=== PATIENT | male | born 1975 | race Caucasian/White ===

== ENCOUNTER 2018-05-29 19:31 | Emergency (ER) | payer OTHER ==
[2018-05-29] MEDS ORDERED: TYLENOL PO ONE (20:42)
[2018-05-29] MEDS ORDERED: NACL 0.9% 1000 ML 2,000 ML IV ONE (20:42)
[2018-05-29] MEDS ORDERED: PEPCID IV ONE (20:42)
--- NOTE | 2018-05-29 20:43 | Emergency Department Report ---
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 The patient does not think he has a primary care doctor. He has a history of hypertension. The patient presents to the emergency room today with a complaint of chest pain and headache. The chest pain is on the right side and left side. The patient reports the pain does not radiate anywhere. He thinks it is pressure-like, achy in nature. He denies vomiting, diaphoresis. He indicates that he feels that he has a fast heart rate. However, he makes no complaint of exertional shortness of breath or chest pain. The patient denies leg pain and leg swelling. He denies recent surgery, and he denies recent hospitalization. However, he does report a recent airplane trip to [place] within the past month. He reports no family history of heart disease, or DVT, pulmonary embolus. The patient reports that he does not smoke cigarettes. He cannot describe the qualitative nature of his pain, and he indicates no exacerbating or relieving factors. He denies hematemesis, bright red blood per rectum. He initially did complain of some shortness of breath, and upon further cla rification, indicates that he feels like his heart is racing. He also complains of frontal and bitemporal headache. He makes no complaint of fever, neck pain or neck stiffness, or sudden or thunderclap headache. -: Gradual, hour(s) Location: head, chest Quality: other Consistency: other Improves with: other Worsens with: other - Related Data Previous Rx's Medication Instructions Recorded Last Taken Type Acetaminophen [Tylenol Arthritis] 650 mg PO Q6HR PRN #30 tablet.er 05/30/18 Unknown Rx Aspirin [Aspirin BABY CHEW TAB] 81 mg PO QDAY #30 tab.chew 05/30/18 Unknown Rx Allergies Allergy/AdvReac Type Severity Reaction Status Date / Time No Known Allergies Allergy Unverified 04/10/19 19:48 ED Review of Systems ROS: Stated complaint: SHORTNESS OF BREATH Other details as noted in HPI Constitutional: denies: fever ENT: denies: dental pain, congestion Respiratory: denies: cough Cardiovascular: chest pain, palpitations Gastrointestinal: denies: abdominal pain, nausea, vomiting, hematemesis, melena, hematochezia Musculoskeletal: denies: back pain Neurological: headache. denies: weakness Psychiatric: anxiety ED Past Medical Hx - Past Medical History Previous Medical History?: Yes Hx Hypertension: Yes - Social History Smoking Status: Smoker, Current Status Unknown Substance Use Type: Alcohol - Medications Home Medications: Home Medications Medication Instructions Recorded Confirmed Last Taken Type Acetaminophen [Tylenol Arthritis] 650 mg PO Q6HR PRN #30 tablet.er 05/30/18 Unknown Rx Aspirin [Aspirin BABY CHEW TAB] 81 mg PO QDAY #30 tab.chew 05/30/18 Unknown Rx ED Physical Exam - General Limitations: Language Barrier General appearance: alert, anxious - Head Head exam: Present: atraumatic, normocephalic - Eye Eye exam: Present: normal appearance, EOMI. Absent: nystagmus - ENT ENT exam: Present: normal exam, normal orophraynx, mucous membranes moist, normal external ear exam - Neck Neck exam: Present: normal inspection, full ROM. Absent: tenderness, meningismus - Respiratory Respiratory exam: Present: normal lung sounds bilaterally. Absent: respiratory distress - Cardiovascular Cardiovascular Exam: Present: normal rhythm, tachycardia, normal heart sounds. Absent: systolic murmur, diastolic murmur, rubs, gallop - GI/Abdominal GI/Abdominal exam: Present: soft. Absent: distended, tenderness, guarding, rebound, rigid, pulsatile mass - Rectal Rectal exam: Present: deferred - Extremities Exam Extremities exam: Present: normal inspection, full ROM, other (2+ pulses noted in the bilateral upper, lower extremities. Compartments soft. No long bony tenderness. The pelvis is stable.). Absent: pedal edema, joint swelling, calf tenderness - Back Exam Back exam: Present: normal inspection, full ROM. Absent: tenderness, CVA tenderness (R), paraspinal tenderness, vertebral tenderness - Neurological Exam Neurological exam: Present: alert, other (Extraocular movements intact. Tongue midline. No facial droop. Facial sensation intact to light touch in the V1, V2, V3 distribution bilaterally. 5 and 5 strength in 4 extremities.. Sensation is intact to light touch in 4 extremities.). Absent: motor sensory deficit - Psychiatric Psychiatric exam: Present: normal affect, normal mood - Skin Skin exam: Present: warm, dry, intact, normal color. Absent: rash ED Course Vital Signs 05/29/18 05/29/18 05/29/18 19:38 19:57 20:00 Temperature 98.9 F 98.4 F Pulse Rate 138 H 124 H 119 H Respiratory 20 19 18 Rate Blood Pressure 147/90 137/90 Blood Pressure 156/94 147/90 [Right] O2 Sat by Pulse 98 98 98 Oximetry 05/29/18 05/29/18 05/29/18 21:00 22:01 23:00 Temperature Pulse Rate 103 H 102 H 87 Respiratory 19 17 16 Rate Blood Pressure 123/86 132/85 Blood Pressure [Right] O2 Sat by Pulse 98 97 98 Oximetry 05/30/18 05/30/18 00:00 01:00 Temperature Pulse Rate 84 77 Respiratory 15 15 Rate Blood Pressure 109/70 110/68 Blood Pressure [Right] O2 Sat by Pulse 97 97 Oximetry - Reevaluation(s) Reevaluation #1: 05/29/18 22:44 Differential diagnosis, including but not limited to: GERD, gastritis, costochondritis, pulmonary embolus, migraine headache, tension headache, cluster headache, acute coronary syndrome, pneumonia, pneumothorax Assessment and plan: 42-year-old gentleman with tachycardia, left axis deviation, reported recent airplane trip to [place], with nonspecific chest pain. The patient is at low risk for major adverse cardiac event, in terms of acute coronary syndrome, coronary artery disease, as per the heart score risk stratification. However, given tachycardia, recent airplane trip, left axis deviation, we will obtain CT scan of the chest to exclude a pulmonary embolus. Patient complains of nonspecific headache, so we will treat both chest pain and headache, and obtain noncontrast CT scan of the brain. We will reassess after his data points have resulted. Tachycardia improving, heart rate currently 102 bpm. 05/29/18 22:45 Reevaluation #2: 05/29/18 23:14 CT scan of the brain is negative for acute disease. CT scan of the chest is negative for acute disease. Reevaluation #3: 05/30/18 01:54 Troponin is negative 3. CT scan of the chest is negative for acute disease. CT scan of the brain is negative for acute disease. Patient reevaluated multiple times by myself, tachycardia resolved, and he appears to be quite comfortable. Repeat EKGs have basically appeared unchanged from prior, without evidence of ST elevation myocardial infarction, with the exception of the second EKG showing r esolution of the previously described left axis deviation, and questionable poor R wave progression versus lead placement. EKG #3 has shown borderline left axis deviation, and no poor R-wave progression. Extensive discussion had with patient using field organizer. It was explained to the patient's that there is no evidence of acute heart attack, pulmonary embolus, collapsed lung or pneumonia. It was further explained to patient that he would need to follow up with an outpatient stitcher around to have a stress test to exclude coronary artery disease. This was specifically done using the aforementioned field organizer. The patient and have verbalized understanding. ED Medical Decision Making - Lab Data Result diagrams: 05/29/18 20:55 05/29/18 20:55 Vital Signs 05/29/18 05/29/18 05/29/18 19:38 19:57 20:00 Temperature 98.9 F 98.4 F Pulse Rate 138 H 124 H 119 H Respiratory 20 19 18 Rate Blood Pressure 147/90 137/90 Blood Pressure 156/94 147/90 [Right] O2 Sat by Pulse 98 98 98 Oximetry 05/29/18 05/29/18 21:00 22:01 Temperature Pulse Rate 103 H 102 H Respiratory 19 17 Rate Blood Pressure 123/86 Blood Pressure [Right] O2 Sat by Pulse 98 97 Oximetry Lab Results 05/29/18 05/29/18 05/29/18 Range/Units 20:55 20:55 20:55 WBC 12.2 H (4.5-11.0) K/mm3 RBC 4.95 (3.65-5.03) M/mm3 Hgb 16.0 H (11.8-15.2) gm/dl Hct 44.7 (35.5-45.6) % MCV 90 (84-94) fl MCH 32 (28-32) pg MCHC 36 H (32-34) % RDW 11.7 L (13.2-15.2) % Plt Count 379 (140-440) K/mm3 Lymph % (Auto) 9.8 L (13.4-35.0) % Mccracken % (Auto) 6.2 (0.0-7.3) % Eos % (Auto) 0.1 (0.0-4.3) % Baso % (Auto) 0.2 (0.0-1.8) % Lymph # 1.2 (1.2-5.4) K/mm3 Mccracken # 0.8 (0.0-0.8) K/mm3 Eos # 0.0 (0.0-0.4) K/mm3 Baso # 0.0 (0.0-0.1) K/mm3 Seg Neutrophils % 83.7 H (40.0-70.0) % Seg Neutrophils # 10.2 H (1.8-7.7) K/mm3 PT 12.8 (12.2-14.9) Sec. INR 0.91 (0.87-1.13) APTT 25.4 (24.2-36.6) Sec. Sodium 137 (137-145) mmol/L Potassium 3.7 (3.6-5.0) mmol/L Chloride 100.9 (98-107) mmol/L Carbon Dioxide 23 (22-30) mmol/L Anion Gap 17 mmol/L BUN 14 (9-20) mg/dL Creatinine 0.9 (0.8-1.5) mg/dL Estimated GFR > 60 ml/min BUN/Creatinine Ratio 16 % Glucose 147 H (75-100) mg/dL Calcium 9.4 (8.4-10.2) mg/dL Magnesium 2.20 (1.7-2.3) mg/dL Total Bilirubin 0.60 (0.1-1.2) mg/dL AST 20 (5-40) units/L ALT 26 (7-56) units/L Alkaline Phosphatase 65 (35-129) units/L Total Creatine Kinase 102 (55-170) units/L Troponin T < 0.010 (0.00-0.029) ng/mL Total Protein 7.1 (6.3-8.2) g/dL Albumin 4.6 (3.9-5) g/dL Albumin/Globulin Ratio 1.8 % Lipase 17 (13-60) units/L TSH (0.270-4.200) mlU/mL 05/29/18 Range/Units 20:55 WBC (4.5-11.0) K/mm3 RBC (3.65-5.03) M/mm3 Hgb (11.8-15.2) gm/dl Hct (35.5-45.6) % MCV (84-94) fl MCH (28-32) pg MCHC (32-34) % RDW (13.2-15.2) % Plt Count (140-440) K/mm3 Lymph % (Auto) (13.4-35.0) % Mccracken % (Auto) (0.0-7.3) % Eos % (Auto) (0.0-4.3) % Baso % (Auto) (0.0-1.8) % Lymph # (1.2-5.4) K/mm3 Mccracken # (0.0-0.8) K/mm3 Eos # (0.0-0.4) K/mm3 Baso # (0.0-0.1) K/mm3 Seg Neutrophils % (40.0-70.0) % Seg Neutrophils # (1.8-7.7) K/mm3 PT (12.2-14.9) Sec. INR (0.87-1.13) APTT (24.2-36.6) Sec. Sodium (137-145) mmol/L Potassium (3.6-5.0) mmol/L Chloride (98-107) mmol/L Carbon Dioxide (22-30) mmol/L Anion Gap mmol/L BUN (9-20) mg/dL Creatinine (0.8-1.5) mg/dL Estimated GFR ml/min BUN/Creatinine Ratio % Glucose (75-100) mg/dL Calcium (8.4-10.2) mg/dL Magnesium (1.7-2.3) mg/dL Total Bilirubin (0.1-1.2) mg/dL AST (5-40) units/L ALT (7-56) units/L Alkaline Phosphatase (35-129) units/L Total Creatine Kinase (55-170) units/L Troponin T (0.00-0.029) ng/mL Total Protein (6.3-8.2) g/dL Albumin (3.9-5) g/dL Albumin/Globulin Ratio % Lipase (13-60) units/L TSH 0.941 (0.270-4.200) mlU/mL - EKG Data -: EKG Interpreted by Sc EKG shows normal: sinus rhythm Rate: tachycardia - EKG Data When compared to previous EKG there are: previous EKG unavailable 05/29/18 22:46 EKG #1 shows a sinus tachycardia, with a left axis deviation, QTC 460 ms, this EKG is abnormal, there is no prior for comparison, this EKG is not consistent with an ST elevation myocardial infarction. - Radiology Data Radiology results: pending, report reviewed, image reviewed Print Report Referring Physician: GRAEME BEAN Patient Name: THANH GUO Date of : 1975 Sex: Male Report Date: 2018-05-29 Report Status: Finalized Findings [facility] [address] [place] [address] XRay Report Signed Patient: THANH GUO MR#: [id number] : 1975 Acct:[id number] Age/Sex: 42 / M ADM Date: 05/29/18 Loc: ED Attending Dr: Ordering Physician: GRAEME BEAN MD Date of Service: 05/29/18 Procedure(s): XR chest routine 2V Accession Number(s): [id number] cc: GRAEME BEAN MD Fluoro Time In Minutes: PROCEDURE: XR CHEST ROUTINE 2V TECHNIQUE: 2 views of the chest HISTORY: Chest Pain COMPARISONS: None FINDINGS: Low volume exam. Crowding in both bases could obscure a subtle infiltrate. Normal heart size. No pleural effusion. IMPRESSION: Low-volume exam with crowding of the bases could obscure a subtle infiltrate. No effusion. Recommend larger inspiratory volume follow-up chest x-ray.. This document is electronically signed by Renetta Mackey MD., May 29 2018 09:41:24 PM ET Transcribed By: MP Dictated By: RENETTA MACKEY Electronically Authenticated By: RENETTA MACKEY Signed Date/Time: 05/29/18 869 Critical care attestation.: If time is entered above; I have spent that time in minutes in the direct care of this critically ill patient, excluding procedure time. ED Disposition Clinical Impression: Chest pain, Headache Disposition: - TO HOME OR SELFCARE Is pt being admited?: No Does the pt Need Aspirin: No Condition: Stable Instructions: Chest Pain (ED) Additional Instructions: Follow up with any of the listed cardiology groups, or listed cardiology specialists within the next 3-5 days to obtain outpatient stress test to assess for partial blockages in the coronary arteries. It is very important that the patient closely follow up as directed. Take the pain medication as directed. Take the headache medicine, Tylenol, as directed. Follow up with a primary care doctor for hypertension and headache within the next month. Return to the emergency room right away with new pain, worsened pain, migration of pain, projectile vomiting, change in mental status, confusion, inability to tolerate liquid feeds, new, worsening or different symptoms. Blaine un seguimiento con cualquiera de los grupos de cardiologa que figuran en la lista, o con los especialistas en cardiologa de la lista dentro de los prximos 3 a 5 lemus para obtener shabana prueba de esfuerzo ambulatoria para evaluar bloqueos parciales en las arterias coronarias. Es muy importante que el paciente realice un seguimiento estricto segn las indicaciones. [place] el medicamento para el dolor amanda se le indique. [place] el medicamento para el dolor de anjali, Tylenol, segn las indicaciones. Blaine un seguimiento con un mdico de atencin primaria para la hipertensin y el dolor de anjali en el prximo mes. Regrese a la ryland de emergencias de inmediato con dolor nuevo, dolor empeorado, migracin del vmito, vmitos con proyectiles, cambios en el estado mental, confusin, incapacidad para tolerar alimentos lquidos, sntomas nuevos, que empeoran o diferentes. Referrals: LACI ROSE MD [Primary Care Provider] - 3-5 Days [facility] [Provider Group] - 3-5 Days [facility] [Provider Group] - 3-5 Days LES MCCARTNEY MD [Staff Physician] - 3-5 Days ABNER FLYNN MD [Staff Physician] - 3-5 Days [facility] [Provider Group] - 3-5 Days Print Language: CYPRIOT
[2018-05-29 21:14] LABS: Basophils % (Auto) 0.2 % (0.0-1.8); Eosinophils % (Auto) 0.1 % (0.0-4.3); Lymphocytes # (Auto) 1.2 K/mm3 (1.2-5.4); Lymphocytes % (Auto) 9.8 % (13.4-35.0); Mean Corpuscular HGB Conc 36 % (32-34); Mean Corpuscular Volume 90 fl (84-94); Monocytes # (Auto) 0.8 K/mm3 (0.0-0.8); Monocytes % (Auto) 6.2 % (0.0-7.3); Platelet Count 379 K/mm3 (140-440); Red Blood Count 4.95 M/mm3 (3.65-5.03); Red Cell Distribution Width 11.7 % (13.2-15.2)
[2018-05-29 21:15] LABS: Hematocrit 44.7 % (35.5-45.6)
[2018-05-29 21:25] LABS: INR 0.91 (0.87-1.13)
[2018-05-29 21:26] LABS: Partial Thromboplastin Time 25.4 Sec. (24.2-36.6)
[2018-05-29 21:35] LABS: Alanine Aminotransferase 26 units/L (7-56); Albumin 4.6 g/dL (3.9-5); BUN/Creatinine Ratio 16; Blood Urea Nitrogen 14 mg/dL (9-20); Calcium 9.4 mg/dL (8.4-10.2); Hemolysis Index 7
--- NOTE | 2018-05-29 21:43 | XRay Report ---
PROCEDURE: XR CHEST ROUTINE 2V TECHNIQUE: 2 views of the chest HISTORY: Chest Pain COMPARISONS: None FINDINGS: Low volume exam. Crowding in both bases could obscure a subtle infiltrate. Normal heart size. No pleural effusion. IMPRESSION: Low-volume exam with crowding of the bases could obscure a subtle infiltrate. No effusion. Recommend larger inspiratory volume follow-up chest x-ray.. This document is electronically signed by Renetta Mackey MD., May 29 2018 09:41:24 PM ET
--- NOTE | 2018-05-29 22:48 | Cat Scan Report ---
PROCEDURE: CT ANGIO CHEST TECHNIQUE: Computerized tomographic angiography of the chest was performed after the IV injection of iodinated nonionic contrast including image processing. The image data was postprocessed using 2-di mensional multiplanar reformatted (MPR) and 3-dimensional (MIP and/or volume rendered) techniques. Au tomated exposure control, adjustment of mA and/or kV according to patient size, or iterative reconstr uction dose optimization techniques were utilized. CT DOSE LENGTH PRODUCT: 869.7 mGycm HISTORY: cp tachycardia recent trip to [place] COMPARISONS: None . FINDINGS: Bilateral lungs and pleural spaces are clear. Hilar structures are within normal limits. There are no obvious filling defects involving bilateral pulmonary arteries and their branches. Aorta is of celeste l caliber. Thyroid demonstrates normal size and density. There is no lymphadenopathy. Cardiac size is within normal limits. Diffuse fatty infiltration of liver is identified. Vertebral height is normal. IMPRESSION: No acute abnormality Fatty liver This document is electronically signed by Rell Lyon MD., May 29 2018 10:46:22 PM ET
--- NOTE | 2018-05-29 22:50 | Cat Scan Report ---
PROCEDURE: CT HEAD/BRAIN WO CON TECHNIQUE: Computerized tomography of the head was performed without contrast material. CT DOSE LENGTH PRODUCT: 920.5 mGycm HISTORY: headache COMPARISONS: None . FINDINGS: Skull and scalp: Normal . Paranasal sinuses: Normal . Ventricles and subarachnoid spaces: Normal . Cerebrum: No evidence of hemorrhage, acute infarction or mass . Cerebellum and brainstem: No evidence of hemorrhage, acute infarction or mass . Vasculature: Normal . Other: None . ASPECTS: 10 IMPRESSION: Normal Examination . This document is electronically signed by Rell Lyon MD., May 29 2018 10:47:50 PM ET
[2018-05-29] MEDS ORDERED: TORADOL IV ONE (23:13)
[2018-05-29] MEDS ORDERED: REGLAN IV ONE (23:13)
[2018-05-30 02:37] VITALS: BP 112/74
== END 2018-05-30 02:30 | disposition home or self-care (01) ==
LOC: ED 19:31
DX: R07.89 Other chest pain (principal); R51 Headache; R06.02 Shortness of breath; I10 Essential (primary) hypertension; F17.200 Nicotine dependence, unspecified, uncomplicated
CPT/HCPCS: 36415; 70450; 71046; 71275; 80053; 82550; 83690; 83735; 84443; 84484; 85025; 85610; 85730; 93005; 93010; 96374; 96375; 99285; J1885; J2765; J7030; Q9967